=== PATIENT | female | born 1945 | race American Indian/Alaskan Native ===

== ENCOUNTER 2017-09-25 11:02 | Emergency (ER) | payer OTHER, MEDICARE ==
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
--- NOTE | 2017-09-25 15:50 | XRay Report ---
CHEST 2 VIEWS INDICATION: Cough. COMPARISON: 11/19/2015 FINDINGS: PA and lateral chest radiographs demonstrate normal cardiomediastinal silhouette and clear, slightly hyperexpanded lungs. No pleural effusions or CHF. Mild lower thoracic spine degenerative spurring. CONCLUSION: No acute chest process, stable. Thank you for the opportunity to participate in this patient's care.
[2017-09-25 23:10] VITALS: BP 116/76
== END 2017-09-25 19:00 | disposition home or self-care (01) ==
LOC: ED 11:02
DX: S16.1XXA Strain of muscle, fascia and tendon at neck level, initial encounter (principal); M19.90 Unspecified osteoarthritis, unspecified site; E78.5 Hyperlipidemia, unspecified; F17.200 Nicotine dependence, unspecified, uncomplicated; Z98.51 Tubal ligation status; V89.2XXA Person injured in unspecified motor-vehicle accident, traffic, initial encounter; Y93.89 Activity, other specified; Y92.89 Other specified places as the place of occurrence of the external cause; Y99.8 Other external cause status
CPT/HCPCS: 36415; 71046; 72040; 84484; 93005; 93010; 99283

== ENCOUNTER 2018-08-30 10:48 | Emergency (ER) | payer MEDICARE ==
[2018-08-30] MEDS ORDERED: ATROVENT IH ONE (11:11)
[2018-08-30] MEDS ORDERED: DELTASONE PO ONE (11:11)
[2018-08-30] MEDS ORDERED: PROVENTIL IH ONE ×2 (11:11→12:39)
--- NOTE | 2018-08-30 11:13 | Emergency Department Report ---
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 Patient has had multiple children who are sick.), Yes Shortness of Breath, No Sore Throat, No Ear Pain, No Chest Pain, No Fever ED Review of Systems ROS: Stated complaint: FLU LIKE Other details as noted in HPI Comment: All other systems reviewed and negative ED Past Medical Hx - Past Medical History Hx Deep Vein Thrombosis: No Hx Arthritis: Yes Additional medical history: hyperlipidemia - Surgical History Hx Pacemaker: No Hx Internal Defibrillator: No Hx Breast Surgery: Yes (cyst) Additional Surgical History: ovarian cyst removal, tubal ligation - Social History Smoking Status: Current Every Day Smoker Substance Use Type: None - Medications Home Medications: Home Medications Medication Instructions Recorded Confirmed Last Taken Type Rosuvastatin (Nf) [Crestor] 10 mg PO QHS 04/16/14 04/16/14 04/14/14 History Acetaminophen/Codeine [Tylenol #3] 1 tab PO Q6H PRN #15 tab 04/22/15 Unknown Rx Loratadine [Claritin] 10 mg PO DAILY #30 tablet 11/19/15 Unknown Rx Prednisone [predniSONE 10 mg 10 mg PO .TAPER #1 tab.ds.pk 11/19/15 Unknown Rx (6-Day Pack, 21 Tabs)] guaiFENesin/CODEINE [Robitussin AC] 5 ml PO TID #120 ml 11/19/15 Unknown Rx Acetaminophen [Acetaminophen TAB] 500 mg PO Q6HR PRN #13 tablet 09/25/17 Unknown Rx Cyclobenzaprine [Flexeril] 10 mg PO TID PRN #12 tablet 09/25/17 Unknown Rx ALBUTEROL Inhaler (OR & NICU) 2 puff IH QID PRN #1 inhalation 08/30/18 Unknown Rx [ProAir HFA Inhaler] Azithromycin [Zithromax Z-LEONEL] 250 mg PO DAILY #6 tablet 08/30/18 Unknown Rx Benzonatate [Tessalon Perles] 100 mg PO Q8HR #10 capsule 08/30/18 Unknown Rx predniSONE [Deltasone] 20 mg PO QDAY #5 tab 08/30/18 Unknown Rx Minor Respiratory Exam - Exam General: Vital signs noted. No distress. Alert and acting appropriately. HEENT: Yes Moist Mucous Membranes, No Pharyngeal Erythema, No Pharyngeal Exudates, No Rhinorrhea, No Conjuctival Injection, No Frontal Tenderness, No Maxillary Tenderness Ear: Neither TM Bulge, Neither TM Erythema, Neither EAC Pain, Neither EAC Discharge Neck: Yes Supple, No Adenopathy Lungs: Yes Good Air Exchange, Yes Wheezes, Yes Cough, No Ronchi, No Stridor, No Labored Respirations, No Retractions, No Use of Accessory Muscles, No Other Abnormal Lung Sounds Heart: Yes Regular, No Murmur Abdomen: Yes Normal Bowel Sounds, No Tenderness, No Peritoneal Signs Skin: No Rash, No Edema Neurologic: Alert and oriented, no deficits. Musculoskeletal: Unremarkable. ED Course Vital Signs 08/30/18 10:51 Temperature 97.9 F Pulse Rate 110 H Respiratory 18 Rate Blood Pressure 148/88 O2 Sat by Pulse 95 Oximetry - Reevaluation(s) Reevaluation #1: 08/30/18 11:12 Initial physical patient had significant expiratory wheezing with no retractions. Patient can speak in full sentences. Patient will be moved to a treatment room at this time to have a nebulizer treatment. Chest x-ray reported as well. ED Medical Decision Making - Radiology Data Radiology results: image reviewed (his x-ray shows hyperinflation to the lungs but there is no acute process. No infiltrate seen.) - Medical Decision Making After 15 mg of albuterol and 1 mg of Atrovent with the addition of 40 mg prednisone patient is now feeling better. Wheezing is nearly resolved. Patient be discharged home Critical care attestation.: If time is entered above; I have spent that time in minutes in the direct care of this critically ill patient, excluding procedure time. ED Disposition Clinical Impression: Bronchospasm with bronchitis, acute Disposition: [id number] TO HOME OR SELFCARE Is pt being admited?: No Does the pt Need Aspirin: No Condition: Stable Instructions: Acute Bronchitis (ED) Referrals: MATTHEW GARCIA MD [Primary Care Provider] - 3-5 Days Time of Disposition: 14:12
--- NOTE | 2018-08-30 12:38 | XRay Report ---
FINAL REPORT EXAM: XR CHEST ROUTINE 2V HISTORY: cough with wheeze COMPARISON: None. TECHNIQUE: Frontal and lateral views of the chest FINDINGS: The cardiomediastinal silhouette is normal in appearance. There is mild hyperinflation of the lungs. No focal consolidation. No pleural effusion or pneumothora x. No acute bony or soft tissue abnormality. IMPRESSION: No acute cardiopulmonary disease. Mild hyperinflation, which can be seen in setting of reactive airways disease and COPD.
[2018-08-30 14:30] VITALS: BP 114/71
== END 2018-08-30 14:30 | disposition home or self-care (01) ==
LOC: ED 10:48
DX: J20.9 Acute bronchitis, unspecified (principal); M19.90 Unspecified osteoarthritis, unspecified site; E78.00 Pure hypercholesterolemia, unspecified; F17.200 Nicotine dependence, unspecified, uncomplicated; Z98.51 Tubal ligation status; Z86.718 Personal history of other venous thrombosis and embolism; Z88.6 Allergy status to analgesic agent; Z88.0 Allergy status to penicillin; Z88.2 Allergy status to sulfonamides
CPT/HCPCS: 71046; 94640; 99283; J7512; 99284

== ENCOUNTER 2019-10-12 16:18 | Emergency (ER) | payer BC, MEDICARE ==
--- NOTE | 2019-10-12 18:01 | Event Note ---
ED Screening Note ED Screening Note: abdominal pain that began two weeks ago states it worse today N/V today no diarrhea states her vomit is brown PMHx none no allergies to meds yesterday had a normal BM This initial assessment/diagnostic orders/clinical plan/treatment(s) is/are subject to change based on patients health status, clinical progression and re- assessment by fellow clinical providers in the ED. Further treatment and workup at subsequent clinical providers discretion. Patient/guardian urged not to elope from the ED as their condition may be serious if not clinically assessed and managed. Initial orders include: labs, UA
[2019-10-12] MEDS ORDERED: ONDANSETRON 4 MG ODT TAB PO ONE (18:02)
[2019-10-12] MEDS ORDERED: ONDANSETRON 4 MG ODT TAB ONE (18:04)
--- NOTE | 2019-10-12 19:17 | Cat Scan Report ---
NONENHANCED CT SCAN OF THE HEAD: INDICATION / CLINICAL INFORMATION: 74 years Female; dizziness. TECHNIQUE: Routine CT head without contrast. All CT scans at this location are performed using CT dos e reduction for ALARA by means of automated exposure control. COMPARISON: CT scan of the head from 04/22/2015 FINDINGS: BRAIN / INTRACRANIAL CONTENTS: No acute hemorrhage, mass effect, midline shift, hydrocephalus, or acu te, large territorial infarct. Chronic ischemic changes are seen in the corpus stratum bilaterally. C hronic lacunae are seen in the right basal ganglia. CRANIOCERVICAL JUNCTION: No significant abnormality. ORBITS: No significant abnormality of visualized orbits. SINUSES / MASTOIDS: Right sphenoid sinus is opacified with sclerotic changes. This could be due to fi brous dysplasia. ADDITIONAL FINDINGS: Lower CT attenuation area is seen within the cerebellar turcica posteriorly. Thi s could be an incidental Rathke's pouch cyst IMPRESSION: No acute parenchymal lesion in the brain Right sphenoid sinus remains unchanged Fibrous dysplasia Lower CT attenuation lesion in the posterior sella turcica Rathke's pouch cyst CT findings remain unchanged Signer Name: Emeli Galvan MD Signed: 10/12/2019 7:12 PM Workstation Name: [id number]
--- NOTE | 2019-10-12 20:25 | Emergency Department Report ---
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 Patient says that she laid her head down because she was feeling sleepy and then when she picked her head up she suddenly had the above-mentioned symptoms. At this time she says that the symptoms have resolved and she feels at her baseline. She denies any headache, vision change, slurred speech, numbness, chest pain, shortness of breath. She has a past medical history of hyperlipidemia. No primary care physician. No recent travel or sick contacts at home. ED Past Medical Hx - Past Medical History Hx Deep Vein Thrombosis: No Hx Arthritis: Yes Additional medical history: hyperlipidemia - Surgical History Hx Pacemaker: No Hx Internal Defibrillator: No Hx Breast Surgery: Yes (cyst) Additional Surgical History: ovarian cyst removal, tubal ligation - Social History Smoking Status: Never Smoker Substance Use Type: None - Medications Home Medications: Home Medications Medication Instructions Recorded Confirmed Last Taken Type Rosuvastatin (Nf) [Crestor] 10 mg PO QHS 04/16/14 04/16/14 04/14/14 History Acetaminophen/Codeine [Tylenol #3] 1 tab PO Q6H PRN #15 tab 04/22/15 Unknown Rx Loratadine (Nf) [Claritin] 10 mg PO DAILY #30 tablet 11/19/15 Unknown Rx Prednisone [predniSONE 10 mg 10 mg PO .TAPER #1 tab.ds.pk 11/19/15 Unknown Rx (6-Day Pack, 21 Tabs)] guaiFENesin/CODEINE [Robitussin AC] 5 ml PO TID #120 ml 11/19/15 Unknown Rx Acetaminophen [Acetaminophen TAB] 500 mg PO Q6HR PRN #13 tablet 09/25/17 Unknown Rx Cyclobenzaprine [Flexeril] 10 mg PO TID PRN #12 tablet 09/25/17 Unknown Rx Albuterol INH(or & Nicu Only) 2 puff IH QID PRN #1 inhalation 08/30/18 Unknown Rx [ProAir HFA Inhaler] Azithromycin [Zithromax Z-LEONEL] 250 mg PO DAILY #6 tablet 08/30/18 Unknown Rx Benzonatate [Tessalon Perles] 100 mg PO Q8HR #10 capsule 08/30/18 Unknown Rx predniSONE [Deltasone] 20 mg PO QDAY #5 tab 08/30/18 Unknown Rx ED Review of Systems ROS: Stated complaint: DIZZY, Other details as noted in HPI Comment: All other systems reviewed and negative Constitutional: denies: chills, fever Eyes: denies: eye pain, vision change ENT: denies: ear pain, throat pain Respiratory: denies: cough, shortness of breath Cardiovascular: denies: chest pain, palpitations Gastrointestinal: abdominal pain (Intermittent, none currently), nausea. denies: vomiting Genitourinary: denies: dysuria, discharge Musculoskeletal: denies: back pain, arthralgia Skin: denies: rash, lesions Neurological: other (Dizziness/lightheadedness). denies: headache Physical Exam - Physical Exam Vital Signs: Vital Signs 10/12/19 18:00 Temperature 98.7 F Pulse Rate 75 Respiratory 18 Rate Blood Pressure 156/80 O2 Sat by Pulse 98 Oximetry Physical Exam: GENERAL: The patient is well-developed well-nourished. HENT: Normocephalic. Atraumatic. Patient has moist mucous membranes. EYES: Extraocular motions are intact. Pupils equal reactive to light bilaterally. No nystagmus. NECK: Supple. Trachea is midline. CHEST/LUNGS: Clear to auscultation. There is no respiratory distress noted. HEART/CARDIOVASCULAR: Regular. There is no tachycardia. There is no murmur. ABDOMEN: Abdomen is soft, nontender. Patient has normal bowel sounds. SKIN: Skin is warm and dry. NEURO: The patient is awake, alert, and oriented. The patient is cooperative. The patient has no focal neurologic deficits. Normal speech. Cranial nerves II through XII grossly intact. No pronator drift. No dysmetria. No facial asymmetry. MUSCULOSKELETAL: There is no tenderness or deformity. There is no limitation range of motion. There is no evidence of acute injury. ED Course Vital Signs 10/12/19 18:00 Temperature 98.7 F Pulse Rate 75 Respiratory 18 Rate Blood Pressure 156/80 O2 Sat by Pulse 98 Oximetry ED Medical Decision Making - Lab Data Result diagrams: 10/12/19 20:04 10/12/19 20:12 - EKG Data -: EKG Interpreted by Me EKG shows normal: sinus rhythm, axis, intervals, QRS complexes, ST-T waves Rate: normal - EKG Data When compared to previous EKG there are: previous EKG unavailable Interpretation: normal EKG - Radiology Data Radiology results: report reviewed NONENHANCED CT SCAN OF THE HEAD: INDICATION / CLINICAL INFORMATION: 74 years Female; dizziness. TECHNIQUE: Routine CT head without contrast. All CT scans at this location are performed using CT dose reduction for ALARA by means of automated exposure control. COMPARISON: CT scan of the head from 04/22/2015 FINDINGS: BRAIN / INTRACRANIAL CONTENTS: No acute hemorrhage, mass effect, midline shift, hydrocephalus, or acute, large territorial infarct. Chronic ischemic changes are seen in the corpus stratum bilaterally. Chronic lacunae are seen in the right basal ganglia. CRANIOCERVICAL JUNCTION: No significant abnormality. ORBITS: No significant abnormality of visualized orbits. SINUSES / MASTOIDS: Right sphenoid sinus is opacified with sclerotic changes. This could be due to fibrous dysplasia. ADDITIONAL FINDINGS: Lower CT attenuation area is seen within the cerebellar turcica posteriorly. 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 At the time of my examination there is no focal, motor or sensory deficits and her cranial nerves are intact. CT of the head without contrast does not show any bleed, shift, mass, ischemia, or any other acute process. EKG does not show any signs of ST elevation [place] or significant dysrhythmia. Labs have been unremarkable including CBC, metabolic panel and troponin. Vital signs stable throughout her ED course. The patient was reevaluated multiple times over multiple hours and there has been no return of her symptoms. She has been given some referrals for primary care and instructed to return to the emergency department with any worsening of her symptoms or any acute distress. - Differential Diagnosis Vasovagal, orthostatic hypotension, dysrhythmia, electrolyte abnormalities, Critical Care Time: No Critical care attestation.: If time is entered above; I have spent that time in minutes in the direct care of this critically ill patient, excluding procedure time. ED Disposition Clinical Impression: Near syncope, Lightheaded Disposition: DC-01 TO HOME OR SELFCARE Is pt being admited?: No Condition: Stable Instructions: Near Syncope (ED), Lightheadedness (ED) Additional Instructions: Please follow-up with a primary care physician in the next few days. Return to the emergency department with any return or worsening of your symptoms, or with any acute distress. Referrals: JIMMY VIZCAINO MD [Staff Physician] - 3-5 Days [facility] [Outside] - 3-5 Days Forms: Work/School Release Form(ED) Time of Disposition: 21:59
[2019-10-12 20:33] LABS: Basophils # (Auto) 0.1 K/mm3 (0.0-0.1); Basophils % (Auto) 1.4 % (0.0-1.8); Eosinophils % (Auto) 0.3 % (0.0-4.3); Hematocrit 41.8 % (30.3-42.9); Hemoglobin 13.4 gm/dl (10.1-14.3); Lymphocytes # (Auto) 1.2 K/mm3 (1.2-5.4); Lymphocytes % (Auto) 28.1 % (13.4-35.0); Mean Corpuscular HGB Conc 32 % (30-34); Mean Corpuscular Volume 88 fl (79-97); Monocytes # (Auto) 0.2 K/mm3 (0.0-0.8); Monocytes % (Auto) 4.1 % (0.0-7.3); Platelet Count 261 K/mm3 (140-440); Red Blood Count 4.73 M/mm3 (3.65-5.03); Red Cell Distribution Width 14.9 % (13.2-15.2)
[2019-10-12 20:49] LABS: Alanine Aminotransferase 15 units/L (7-56); BUN/Creatinine Ratio 20; Blood Urea Nitrogen 16 mg/dL (7-17); Calcium 9.4 mg/dL (8.4-10.2); Hemolysis Index 3
[2019-10-12 21:53] VITALS: BP 127/80
[2019-10-12 22:48] LABS: Bilirubin,Urine NEG (Negative); Blood,Urine SM (Negative); Color,Urine Yellow (Yellow); Protein,Urine <15 mg/dL mg/dL (Negative); Urobilinogen,Urine < 2.0 mg/dL (<2.0)
== END 2019-10-12 22:30 | disposition home or self-care (01) ==
LOC: ED 16:18
DX: R55 Syncope and collapse (principal); R42 Dizziness and giddiness; E78.5 Hyperlipidemia, unspecified; M19.90 Unspecified osteoarthritis, unspecified site; Z88.0 Allergy status to penicillin; Z88.2 Allergy status to sulfonamides; Z88.6 Allergy status to analgesic agent; Z79.899 Other long term (current) drug therapy; Z98.51 Tubal ligation status; Z98.890 Other specified postprocedural states
CPT/HCPCS: 36415; 70450; 80053; 81001; 82550; 83690; 83735; 84484; 85025; 93005; 93010; Q0162